=== PATIENT | male | born 1950 ===

== ENCOUNTER 2022-10-11 08:10 | Outpatient (CLI) | payer OTHER, MEDICARE | END 2022-10-11 08:11 | disposition home or self-care (01) | LOC: NM 08:10 | PROVIDERS: ATTEND Specialist | DX: Z47.1 Aftercare following joint replacement surgery (principal); M17.12 Unilateral primary osteoarthritis, left knee; T84.84XA Pain due to internal orthopedic prosthetic devices, implants and grafts, initial encounter; Z96.652 Presence of left artificial knee joint | CPT/HCPCS: 78315; A9503 ==